=== PATIENT | female | born 2000 | race Caucasian/White ===

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

== ENCOUNTER → 2018-05-25 | Outpatient (CLI) | payer OTHER ==
[~2018-05-25] MED LIST: CONRAY-43 43% 50ML VIAL (Q9960) As Ordered ONE; PROHANCE 279.3MG/ML 15ML VIAL (A9576) As Ordered ONE; PROHANCE 279.3MG/ML 5ML VIAL (A9576) As Ordered ONE
--- NOTE | 2018-05-25 09:55 | REP ---
MR ARTHROGRAM RIGHT HIP: TECHNIQUE: Coronal T1, STIR through the pelvis, post arthrogram axial T1 fat sat, T2 fat sat, coronal T1 fat sat, T2 fat sat, sagittal T1 fat sat, axial oblique T1 fat sat right hip. The visualized osseous structures demonstrate normal marrow signal. There is no bone marrow edema or occult fracture. There is no evidence of avascular necrosis. There is no evidence of a labral tear. No joint effusion or paralabral cyst is seen. Surrounding soft tissue structures demonstrate no abnormal signal. Within the visualized portions of the pelvis, a cystic structure of the right ovary is seen which measures 2.2 cm in diameter compatible with a dominant follicle. There is a small amount of free fluid in the pelvis which is likely physiologic in nature. IMPRESSION: Essentially negative MR arthrogram right hip. Dominant follicle right ovary 2.2 cm in diameter. Small amount of free fluid in the pelvis is likely physiologic. Electronically Signed by Pete Smith MD 05/25/2018 08:32 P
--- NOTE | 2018-05-25 20:33 | REP ---
Right hip arthrogram The procedure was performed under the direction supervision of Dr. Smith. The benefits and risks including but not limited to pain, infection, bleeding and anaphylaxis were explained to the patient and informed consent was obtained. The right femoral neck was localized using fluoroscopic guidance. Skin was prepped and draped in a sterile fashion. 1% lidocaine was used as a local anesthetic. Using fluoroscopic guidance a 22 gauge spinal needle was inserted and advanced to the femoral neck. 0.5 ml of Conray 43 was injected to verify placement. 11 ml of a solution containing 20 ml of sterile saline and 0.15 ml of ProHance was injected into the joint. The needle was removed and the patient was taken to MRI for postprocedural imaging. The patient tolerated the procedure well and there were no immediate complications. Less than 6 seconds of fluoro time was utilized for this procedure. Reviewed by VANE Cook 05/25/2018 02:29 P Electronically Signed by Pete Smith MD 05/25/2018 08:23 P
== END ==
LOC: M RADPRO 06:48
PROVIDERS: ATTEND Orthopaedic Surgery
DX: M25.551 Pain in right hip (principal)
CPT/HCPCS: 27093; 73723; 77002; A9576; Q9960